=== PATIENT | male | born 1985 | race Caucasian/White ===

== ENCOUNTER 2016-09-01 10:47 | Emergency (ER) | payer OTHER ==
[2016-09-01] MEDS ORDERED: TDAP ADULT 0.5 ML INJ (BOOSTRIX) IM ONE (11:00)
[2016-09-01 11:01] VITALS: TEMP 97.5
[2016-09-01] MEDS ORDERED: SKIN ADHESIVE (DERMABOND) 1 EACH TP ONE (11:11)
--- NOTE | 2016-09-01 11:12 | EDPHY ---
H & P Stated Complaint: lac to left 2nd finger yest 1pm at work . reopened today Time Seen by Provider: 09/01/16 11:09 HPI/ROS: Chief Complaint: Left index finger injury HPI: The patient presents the ED with ongoing bleeding from a superficial skin laceration he sustained to the tip of his left finger yesterday while at work. 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 The patient reported that he was working again today and it began to bleed. He denies any acute complaints. The patient reports his tetanus is not up today. REVIEW OF SYSTEMS: Neuro: no headache, numbness, weakness Musculoskeletal: as above Skin: As above Source: Patient Exam Limitations: No limitations - Personal History Current Tetanus/Diphtheria Vaccine: No Current Tetanus Diphtheria and Acellular Pertussis (TDAP): No - Medical/Surgical History Hx Asthma: No Hx Chronic Respiratory Disease: No Hx Diabetes: No Hx Cardiac Disease: No Hx Renal Disease: No Hx Cirrhosis: No Hx Alcoholism: No Hx HIV/AIDS: No Hx Splenectomy or Spleen Trauma: No Other PMH: inguinal hernia - Social History Smoking Status: Current every day smoker - Physical Exam Exam: General: No acute distress Left hand: 1 cm superficial avulsion type laceration with skin flap to tip of distal left finger. Neuro: Sensation intact to light touch Vascular: Normal capillary refill Constitutional: Initial Vital Signs Temperature (C) 36.4 C 09/01/16 10:58 Heart Rate 60 09/01/16 10:58 Respiratory Rate 16 09/01/16 10:58 Blood Pressure 147/75 H 09/01/16 10:58 O2 Sat (%) 98 09/01/16 10:58 O2 Delivery Mode Room Air Allergies/Adverse Reactions: No Known Allergies Allergy (Unverified 09/01/16 11:02) Home Medications: Medication Instructions Recorded NK [No Known Home Meds] 09/01/16 Medical Decision Making Procedures: Procedure: Laceration repair with skin glue Verbal consent was obtained from the patient. The 1 cm laceration on the left index finger. The wound was scrubbed and explored to its base with a gloved finger. The wound was repaired with tissue adhesive. The procedure was performed by myself. ED Course/Re-evaluation: The patient's tetanus shot was updated. His superficial skin flap was irrigated and cleaned. I did apply a small amount of derma goodman to the nonviable skin flap to serve as a dressing for the tip of the finger. Departure - Departure Disposition: Home, Routine, Self-Care Clinical Impression: Laceration of index finger Qualifiers: Encounter type: initial encounter Damage to nail status: without damage Foreign body presence: without foreign body Laterality: left Qualified Code(s): S61.211A - Laceration without foreign body of left index finger without damage to nail, initial encounter Condition: Good Instructions: Skin Adhesive Care (ED) Additional Instructions: 1. Tylenol and ibuprofen as needed for pain Referrals: NONE *PRIMARY CARE P,. [Primary Care Provider] - As per Instructions
[2016-09-01 11:41] VITALS: BP 115/62; PULSE 74; RESP 18; O2SAT 97
== END 2016-09-01 11:15 | disposition home or self-care (01) ==
LOC: CED 10:47
PROC: 0HQGXZZ Repair Left Hand Skin, External Approach (ICD-10-PCS; principal; 2016-09-01)
DX: S61.211A Laceration without foreign body of left index finger without damage to nail, initial encounter (principal); F17.200 Nicotine dependence, unspecified, uncomplicated; Z23 Encounter for immunization; W45.8XXA Other foreign body or object entering through skin, initial encounter; Y92.69 Other specified industrial and construction area as the place of occurrence of the external cause

== ENCOUNTER 2016-09-10 17:10 | Emergency (ER) | payer OTHER ==
[2016-09-10 17:19] VITALS: BP 119/73; PULSE 66; RESP 16; TEMP 98.4; O2SAT 97
--- NOTE | 2016-09-10 17:23 | EDPHY ---
H & P Stated Complaint: left index finger laceration opening up Time Seen by Provider: 09/10/16 17:16 HPI/ROS: CHIEF COMPLAINT: Wound care HISTORY OF PRESENT ILLNESS: The patient is a 22-year-old man who comes to the emergency department concerned about the wound on the tip of his left index finger. He cut worker week ago. He was seen here the next day and had it glued. The glue is now starting to peel off. He was told that it would last 1 -5 days. No increasing pain. No erythema. No fevers. No drainage. REVIEW OF SYSTEMS: Constitutional: denies: chills, fever, recent illness, recent injury EENTM: denies: blurred vision, double vision, nose congestion Respiratory: denies: cough, shortness of breath Cardiac: denies: chest pain, irregular heart rate, lightheadedness, palpitations Gastrointestinal/Abdominal: denies: abdominal pain, diarrhea, nausea, vomiting, blood streaked stools Genitourinary: denies: dysuria, frequency, hematuria, pain Musculoskeletal: denies: joint pain, muscle pain Skin: See HPI Neurological: denies: headache, numbness, paresthesia, tingling, dizziness, weakness Hematologic/Lymphatic: denies: blood clots, easy bleeding, easy bruising Immunologic/allergic: denies: HIV/AIDS, transplant EXAM: GENERAL: Well-appearing, well-nourished and in no acute distress. HEAD: Atraumatic, normocephalic. EYES: Pupils equal round and reactive to light, extraocular movements intact, sclera anicteric, conjunctiva are normal. ENT: TMs normal, nares patent, oropharynx clear without exudates. Moist mucous membranes. NECK: Normal range of motion, supple without lymphadenopathy or JVD. LUNGS: Breath sounds clear to auscultation bilaterally and equal. No wheezes rales or rhonchi. HEART: Regular rate and rhythm without murmurs, rubs or gallops. ABDOMEN: Soft, nontender, normoactive bowel sounds. No guarding, no rebound. No masses appreciated. BACK: No CVA tenderness, no spinal tenderness, step-offs or deformities EXTREMITIES: Normal range of motion, no pitting or edema. No clubbing or cyanosis. NEUROLOGICAL: Cranial nerves II through XII grossly intact. Normal speech, normal gait. 5/5 strength, normal movement in all extremities, normal sensation PSYCH: Normal mood, normal affect. SKIN: Patient has a small avulsion laceration to the tip of his left index finger approximately 1 x 1 cm. Bleeding controlled. Normal sensation and capillary refill. Source: Patient Exam Limitations: No limitations - Medical/Surgical History Hx Asthma: No Hx Chronic Respiratory Disease: No Hx Diabetes: No Hx Cardiac Disease: No Hx Renal Disease: No Hx Cirrhosis: No Hx Alcoholism: No Hx HIV/AIDS: No Hx Splenectomy or Spleen Trauma: No Other PMH: inguinal hernia - Family History Significant Family History: No pertinent family hx - Social History Smoking Status: Current every day smoker Alcohol Use: Sober Drug Use: None Constitutional: Initial Vital Signs Temperature (C) 36.9 C 09/10/16 17:17 Heart Rate 66 09/10/16 17:17 Respiratory Rate 16 09/10/16 17:17 Blood Pressure 119/73 09/10/16 17:17 O2 Sat (%) 97 09/10/16 17:17 O2 Delivery Mode Room Air Allergies/Adverse Reactions: No Known Allergies Allergy (Unverified 09/10/16 17:19) Home Medications: Medication Instructions Recorded NK [No Known Home Meds] 09/01/16 Medical Decision Making ED Course/Re-evaluation: The remainder of the glue was removed. The patient's wound was cleaned and dressed with bacitracin and sterile dressings. At this point there is no I am utility in closing the wound. It is already granulating. We emphasized keeping it clean and dressed. The flap will but until that point can act as a physiologic Band-Aid. Patient understands and agrees with this plan. He declines further workup or testing at this time. Differential Diagnosis: Partial list of the Differential diagnosis considered include but were not limited to; laceration, avulsion and although unlikely based on the history and physical exam, I also considered wound infection, contamination, vascular injury, fracture. I discussed these differential diagnoses and the plan with the patient as well as the usual and expected course. The patient understands that the diagnosis is provisional and that in medicine we are not always correct and that further workup is often warranted. Usual and customary warnings were given. All of the patient's questions were answered. The patient was instructed to return to the emergency department should the symptoms at all worsen or return, otherwise to followup with the physician as we discussed. Departure - Departure Disposition: Home, Routine, Self-Care Clinical Impression: Laceration Condition: Good Instructions: Laceration (ED) Referrals: NONE *PRIMARY CARE P,. [Primary Care Provider] - As per Instructions Tiffany Bolanos MD [[facility] [place] Primary Care Provider] - As per Instructions
== END 2016-09-10 17:35 | disposition home or self-care (01) ==
LOC: CED 17:10
DX: S61.211D Laceration without foreign body of left index finger without damage to nail, subsequent encounter (principal); F17.200 Nicotine dependence, unspecified, uncomplicated; X58.XXXD Exposure to other specified factors, subsequent encounter

== ENCOUNTER 2017-11-17 08:06 | Emergency (ER) | payer OTHER ==
[2017-11-17 08:18] VITALS: BP 134/78
[2017-11-17] MEDS ORDERED: PROPARACAINE 0.5% 15 ML OPHT DROP RTEYE ONE (08:19)
[2017-11-17] MEDS ORDERED: FLUORESCEIN SODIUM 1 MG STRIP OP ONE (08:20)
[2017-11-17] MEDS ORDERED: IBUPROFEN 600 MG TAB PO ONE (08:49)
--- NOTE | 2017-11-17 08:56 | EDPHY ---
H & P Time Seen by Provider: 11/17/17 08:18 HPI/ROS: This patient complains of a red right eye after getting dust"or something"in his eye at work yesterday. He explains that he raises hand above his head to toenail above his head when something fell into his eye despite having safety glasses on. He subsequently rinse the eye but reports 4/10 pain and irritation associated with redness since that time. He denies any significant vision changes or any other complaints. ROS: HEENT No significant left eye symptoms. No other ocular complaints Neuro: No headache. Integumentary: No cold sores or other rashes. 5 point review of symptoms is performed and otherwise negative with exception of pertinent positives and negatives listed in HPI and ROS Smoking Status: Current every day smoker Physical Exam: Physical Exam Vital signs are normal. General: No acute distress HEENT: Atraumatic. No lip lesions or other skin lesions on the face Eyes: Pupils equal and react to light. Extraocular motions are intact. Right eye exam is notable for conjunctival injection to the lateral aspect of the right eye on slit-lamp exam after proparacaine anesthesia and fluorescein dye there is evidence of corneal abrasion between 6 and 9:00 a.m.-a few scattered superficial abrasions are present. There is mild corneal edema associated with this. I appreciate no foreign body and everted upper and lower eyelids. Lungs: No respiratory distress. Cardiac: Brisk capillary refill is intact throughout. Skin: No rash or pallor. Neuro: Alert and oriented x3 with no sensorimotor deficits. Initial differential diagnosis: Corneal abrasion, atypical keratitis Constitutional: Initial Vital Signs Temperature (C) 36.6 C 11/17/17 08:15 Heart Rate 65 11/17/17 08:15 Respiratory Rate 16 11/17/17 08:15 Blood Pressure 134/78 H 11/17/17 08:15 O2 Sat (%) 97 11/17/17 08:15 O2 Delivery Mode Room Air Allergies/Adverse Reactions: No Known Allergies Allergy (Verified 11/17/17 08:15) Home Medications: Medication Instructions Recorded Ibuprofen [Motrin (*)] 600 mg PO Q6 PRN #30 tab 11/17/17 Ofloxacin 0.3% [Ocuflox 0.3% (RX)] 2 drops EACHEYE Q1 #1 btl 11/17/17 MDM/Departure - MDM Medications Given: Discontinued Medications Fluorescein Sodium (Bioglo) 1 mg OP EDNOW ONE Stop: 11/17/17 08:21 Last Admin: 11/17/17 08:25 Dose: 1 mg Ibuprofen (Motrin) 600 mg PO EDNOW ONE Stop: 11/17/17 08:50 Last Admin: 11/17/17 08:57 Dose: 600 mg Proparacaine HCl (Alcaine 0.5%) 1 drops RTEYE ONCE ONE Stop: 11/17/17 08:20 Last Admin: 11/17/17 08:24 Dose: 1 drop ED Course/Re-evaluation: Patient will be treated with Ocuflox, ibuprofen Tylenol for discomfort. No work for the next 2 days[address] Follow up with Dr. Villasenor or work comp. He will return emergency department for any significant worsening despite treatment plan - Depart Disposition: Home, Routine, Self-Care Clinical Impression: Corneal abrasion Qualifiers: Encounter type: initial encounter Laterality: right Qualified Code(s): S05.01XA - Injury of conjunctiva and corneal abrasion without foreign body, right eye, initial encounter Condition: Good Instructions: Ofloxacin (Into the eye), Corneal Abrasion (ED) Additional Instructions: Diagnosis: Corneal abrasion Plan: Ocuflox antibiotic drops Ibuprofen Tylenol for discomfort as needed No work for the next 2 days. Follow up with work comp in 2 days for recheck or with Ophthalmology Prescriptions: Ibuprofen [Motrin (*)] 600 mg PO Q6 PRN #30 tab PRN Reason: Pain Ofloxacin 0.3% [Ocuflox 0.3% (RX)] 2 drops EACHEYE Q1 #1 btl Referrals: Rojelio Villasenor MD [Medical Doctor] - As per Instructions
== END 2017-11-17 09:05 | disposition home or self-care (01) ==
LOC: CED 08:06
DX: S05.01XA Injury of conjunctiva and corneal abrasion without foreign body, right eye, initial encounter (principal); F17.200 Nicotine dependence, unspecified, uncomplicated; W20.8XXA Other cause of strike by thrown, projected or falling object, initial encounter; Y99.0 Civilian activity done for income or pay